=== PATIENT | male | born 1995 | race African-American/Black ===

== ENCOUNTER 2019-11-05 17:33 | Emergency (ER) | payer SELFPAY ==
[~2019-11-05] VITALS: Ht 162.6 cm; Wt 87.0 kg
--- NOTE | 2019-11-05 17:55 | PHYS DOC ---
Adult General Chief Complaint Chief Complaint: SORE THROAT... " I ve been having this sore throat... and congestion the last three days... " HPI HPI Patient is a 24 year old male who presents with above hx and complaints of sore throat, injection and rhinorrhea. No history of travel. No history of specific ill contacts. No history immunosuppression. Did not get flu vaccination this season. No recent travel outside of [facility]. Normally healthy. Review of Systems Review of Systems Constitutional: Denies fever or chills [] Eyes: Denies change in visual acuity, redness, or eye pain [] HENT: Complains of nasal congestion and sore throat [] Respiratory: Denies cough or shortness of breath [] Cardiovascular: No additional information not addressed in HPI [] GI: Denies abdominal pain, nausea, vomiting, bloody stools or diarrhea [] : Denies dysuria or hematuria [] Musculoskeletal: Denies back pain or joint pain [] Integument: Denies rash or skin lesions [] Neurologic: Denies headache, focal weakness or sensory changes [] Endocrine: Denies polyuria or polydipsia [] All other systems were reviewed and found to be within normal limits, except as documented in this note. Family History Family History Noncontributory to presentation Current Medications Current Medications See nursing for home meds Allergies Allergies No known drug allergies Physical Exam Physical Exam Constitutional: Well developed, well nourished, no acute distress, non-toxic appearance. [] HENT: Normocephalic, atraumatic, bilateral external ears normal, oropharynx moist, injected pharynx, no oral exudates, nose swollen turbinates and clear rhinorrhea Eyes: PERRLA, EOMI, conjunctiva normal, no discharge. [] Neck: Normal range of motion, no tenderness, supple, no stridor. [] Cardiovascular:Heart rate regular rhythm, no murmur [] Lungs & Thorax: Bilateral breath sounds equal at apex on auscultation []few scattered wheezes. Abdomen: Bowel sounds normal, soft, no tenderness, no masses, no pulsatile masses. [] Skin: Warm, dry, no erythema, no rash. [] Back: No tenderness, no CVA tenderness. [] Extremities: No tenderness, no cyanosis, no clubbing, ROM intact, no edema. [] Neurologic: Alert and oriented X 3, normal motor function, normal sensory function, no focal deficits noted. [] Psychologic: Affect anxious, judgement normal, mood normal. [] EKG EKG [] Radiology/Procedures Radiology/Procedures [] Course & Med Decision Making Course & Med Decision Making Pertinent Labs and Imaging studies reviewed. (See chart for details) Patient push fluids and take Tylenol and ibuprofen as needed for discomfort. Gargle with Listerine 4 times a day follow-up primary care. Return if any concerns. Benadryl 50 mg up 4 times a day may be helpful for nasal drainage and congestion. Impression: 1. Pharyngitis 2. Viral syndrome [] Dragon Disclaimer Dragon Disclaimer This electronic medical record was generated, in whole or in part, using a voice recognition dictation system. Departure Departure: Disposition: 01 HOME/RESIDENCE PRIOR TO ADM Condition: STABLE Referrals: PCP,NO (PCP) Dragon Disclaimer This chart was dictated in whole or in part using Voice Recognition software in a busy, high-work load, and often noisy Emergency Department environment. It may contain unintended and wholly unrecognized errors or omissions. GYPSY HIGGINS MD Nov 05, 2019 17:55
[2019-11-05] MEDS ORDERED: predniSONE 10 MG TABLET PO ONE (18:00)
[2019-11-05 18:09] VITALS: BP 134/75
[2019-11-05 19:24] LABS: INFLUENZA A PATIENT NEGATIVE (NEGATIVE); INFLUENZA B PATIENT NEGATIVE (NEGATIVE)
== END 2019-11-05 20:00 | disposition home or self-care (01) ==
LOC: ER 17:33
DX: B34.9 Viral infection, unspecified (principal); J02.9 Acute pharyngitis, unspecified
CPT/HCPCS: 87070; 87804; 87880; 99283; J7512

== ENCOUNTER 2020-01-04 16:57 | Emergency (ER) | payer SELFPAY ==
[~2020-01-04] VITALS: Ht 162.6 cm; Wt 89.4 kg
[2020-01-04 17:05] VITALS: BP 135/86
--- NOTE | 2020-01-04 17:13 | PHYS DOC ---
Past History Past Medical History: Seizure Past Surgical History: No Surgical History Alcohol Use: None General Adult EDM: Chief Complaint: LACERATION/AVULSION HPI: HPI: Patient is a 24-year-old male who presents with a small laceration to his right ring and middle fingers. He states he cut it while sharpening a lawnmower blade. He states it bled a lot at home. [] Review of Systems: Review of Systems: Constitutional: Denies fever or chills Eyes: Denies change in visual acuity HENT: Denies nasal congestion or sore throat Respiratory: Denies cough or shortness of breath Cardiovascular: Denies chest pain or edema GI: Denies abdominal pain, nausea, vomiting, bloody stools or diarrhea : Denies dysuria Musculoskeletal: Denies back pain or joint pain Integument: Per HPI Neurologic: Denies headache, focal weakness or sensory changes Endocrine: Denies polyuria or polydipsia Lymphatic: Denies swollen glands Psychiatric: Denies depression or anxiety Heart Score: Risk Factors: Risk Factors: DM, Current or recent (<one month) smoker, HTN, HLP, family history of CAD, obesity. Risk Scores: Score 0 - 3: 2.5% MACE over next 6 weeks - Discharge Home Score 4 - 6: 20.3% MACE over next 6 weeks - Admit for Clinical Observation Score 7 - 10: 72.7% MACE over next 6 weeks - Early Invasive Strategies Allergies: Allergies: Allergies Coded Allergies Type Severity Reaction Last Updated Verified No Known Drug Allergies 11/05/19 No Physical Exam: PE: Constitutional: Well developed, well nourished, no acute distress, non-toxic appearance. [] HENT: Normocephalic, atraumatic, bilateral external ears normal, oropharynx moist, no oral exudates, nose normal. [] Eyes: PERRLA, EOMI, conjunctiva normal, no discharge. [] Skin: A 0.5 cm superficial laceration to the right ring finger and an even smaller laceration to the middle finger on the dorsal surface [] Back: No tenderness, no CVA tenderness. [] Extremities: No tenderness, no cyanosis, no clubbing, ROM intact, no edema. [] Psychologic extremely anxious. [] EKG: EKG: [] Radiology/Procedures: Radiology/Procedures: [] Course & Med Decision Making: Course & Med Decision Making Pertinent Labs and Imaging studies reviewed. (See chart for details) [Procedure: Laceration repair The wound was cleaned with Hibiclens and then using Dermabond the wound edges were reapproximated on the small wound on the dorsal surface of his right ring finger patient tolerated the procedure well] Conrad Disclaimer: Conrad Disclaimer: This electronic medical record was generated, in whole or in part, using a voice recognition dictation system. Departure Departure: Impression: Primary Impression: Laceration of right hand Qualified Codes: S61.411A - Laceration without foreign body of right hand, initial encounter Disposition: 01 HOME/RESIDENCE PRIOR TO ADM Condition: STABLE Referrals: PCP,NO (PCP) Patient Instructions: Laceration Care, Adult Additional Instructions: Return to the emergency department with any new or concerning symptoms JAMES MARTINES DO January 04, 2020 17:12
== END 2020-01-04 17:15 | disposition home or self-care (01) ==
LOC: ER 16:57
DX: S61.214A Laceration without foreign body of right ring finger without damage to nail, initial encounter (principal); S61.212A Laceration without foreign body of right middle finger without damage to nail, initial encounter; W26.8XXA Contact with other sharp object(s), not elsewhere classified, initial encounter; Y93.89 Activity, other specified; Y92.89 Other specified places as the place of occurrence of the external cause; Y99.8 Other external cause status
CPT/HCPCS: 12001; 99282

== ENCOUNTER 2020-05-07 21:07 | Emergency (ER) | payer SELFPAY ==
[~2020-05-07] VITALS: Ht 162.6 cm; Wt 89.4 kg
[2020-05-07 21:19] VITALS: BP 124/84
--- NOTE | 2020-05-07 21:34 | PHYS DOC ---
Past History Past Medical History: Anxiety, Depression, Seizure Past Surgical History: No Surgical History Alcohol Use: None General Adult EDM: Chief Complaint: INSECT BITE HPI: HPI: Juliano Carrington is a 25-year-old male who presents approximately 2 hours after being stung by multiple yellow jackets. He states that while he was cutting grass he disturbed yellow jackets who proceeded to sting him. He was stung 3 times: Back of his head, left anterior thigh, left posterior lower calf. He denies history of allergies including after being stung by a yellow jacket approximately 5 years ago. Patient currently has some mild shortness of breath, but states that he is experiencing anxiety and that the sensation is similar to his past encounters with anxiety. He has not taken anything for the pain today. Review of Systems: Review of Systems: Constitutional: Denies fever or chills Eyes: Denies redness or eye pain HENT: Denies nasal congestion or sore throat Respiratory: Denies cough; admits shortness of breath Cardiovascular: Denies chest pain or palpitations GI: Denies abdominal pain, nausea, or vomiting Musculoskeletal: Denies back pain or joint pain Integument: Denies rash or skin lesions; affirms insect stings Neurologic: Denies headache, focal weakness or sensory changes Psych: Admits anxiety Complete systems were reviewed and found to be within normal limits, except as documented in this note. Heart Score: Risk Factors: Risk Factors: DM, Current or recent (<one month) smoker, HTN, HLP, family history of CAD, obesity. Risk Scores: Score 0 - 3: 2.5% MACE over next 6 weeks - Discharge Home Score 4 - 6: 20.3% MACE over next 6 weeks - Admit for Clinical Observation Score 7 - 10: 72.7% MACE over next 6 weeks - Early Invasive Strategies Allergies: Allergies: Allergies Coded Allergies Type Severity Reaction Last Updated Verified No Known Drug Allergies 11/05/19 No Physical Exam: PE: Constitutional: Well developed, well nourished, no acute distress, non-toxic appearance HENT: Normocephalic, atraumatic Neck: Normal range of motion, no tenderness, supple Lungs & Thorax: No respiratory distress, equal chest rise and fall, clear to all station bilaterally Cardiac: Regular rate rhythm, no murmur Abdomen: Soft, no tenderness Skin: Warm, dry; small areas of erythema on the left distal anterior thigh and distal medial posterior calf, no obvious erythema in the occipital region, no tenderness to palpation of these erythematous regions Back: No tenderness, no CVA tenderness Extremities: No tenderness, ROM intact, no edema Neurologic: Alert and oriented X 3, normal motor function, normal sensory function, no focal deficits noted Psychologic: Affect normal, judgment normal Course & Med Decision Making: Course & Med Decision Making Patient presented after insect stings as described above. Given the patient's clinical presentation as well as his past experience with yellow jackets I do not suspect anaphylaxis. Patient is treated with Benadryl and dexamethasone. Instructed to continue care at home with [id number]. Dragon Disclaimer: Figment Disclaimer: This electronic medical record was generated, in whole or in part, using a voice recognition dictation system. Departure Departure: Impression: Primary Impression: Insect bite Qualified Codes: W57.XXXA - Bitten or stung by nonvenomous insect and other nonvenomous arthropods, initial encounter Disposition: HOME/RESIDENCE PRIOR TO ADM Condition: STABLE Referrals: PCP,NO (PCP) Patient Instructions: Bee, Wasp, or Hornet Sting Scripts Diphenhydramine Hcl (BENADRYL) 25 Mg Capsule 1 CAP PO Q6HRS PRN for RASH, #30 CAP 0 Refills Prov: MATILDA TAYLOR DO 05/07/20 Prednisone (PREDNISONE) 20 Mg Tablet 2 TAB PO DAILY for Wasp stings, #8 TAB Start this prescription tomorrow, Monday05/08/2020 Prov: MATILDA TAYLOR DO 05/07/20 Justification of Admission: Justification of Admission: Justification of Admission Dx: N/A MATILDA TAYLRO DO May 07, 2020 21:34
[2020-05-07] MEDS ORDERED: PRED20TA PO (21:39)
[2020-05-07] MEDS ORDERED: DIPH25CA58 PO (21:39)
[2020-05-07] MEDS ORDERED: diphenhydrAMINE HCL 25 MG CAPSULE PO ONE (21:45)
[2020-05-07] MEDS ORDERED: DEXAMETHASONE 4 MG TABLET PO ONE (21:45)
== END 2020-05-07 21:57 | disposition home or self-care (01) ==
LOC: ER 21:07
DX: T63.461A Toxic effect of venom of wasps, accidental (unintentional), initial encounter (principal); R06.02 Shortness of breath; F41.9 Anxiety disorder, unspecified; F32.9 Major depressive disorder, single episode, unspecified; Y92.89 Other specified places as the place of occurrence of the external cause
CPT/HCPCS: 99283; J8540; Q0163

== ENCOUNTER 2021-10-02 09:45 | Emergency (ER) | payer SELFPAY ==
[~2021-10-02] VITALS: Ht 162.6 cm; Wt 89.4 kg
[2021-10-02 09:45] VITALS: BP 126/81
[~2021-10-02 09:45] MED LIST: DIPH25CA58 PO; PRED20TA PO
--- NOTE | 2021-10-02 10:22 | PHYS DOC ---
Past History Past Medical History: Anxiety, Depression, Seizure (DON CLIFFORD APRN) Past Surgical History: Appendectomy (DON CLIFFORD APRN) Smoking: Non-smoker Alcohol Use: None Drug Use: None (DON CLIFFORD APRN) General Adult EDM: Chief Complaint: Neck Pain HPI: HPI: Patient is a 26-year-old male that presents today with left-sided neck pain. Patient states he woke up last week, patient states pain is underneath the left jaw area, patient denies any trauma or injury to this area, does state that he has a broken tooth on the left lower jaw area but he does not feel that is causing his issues. Patient does state he has a family history of hypertension and he is concerned he may have hypertension patient also states that he has a history of rapid heartbeat and he feels this is may be causing his issues as well. Patient denies chest pain, shortness of air, fever, difficulty swallo wing, dizziness, blurred vision/double vision, facial droop or numbness or tingling on one side of his body. (DON CLIFFORD APRN) Review of Systems: Review of Systems: Constitutional: Denies fever or chills Eyes: Denies change in visual acuity HENT: Left-sided neck pain Respiratory: Denies cough or shortness of breath Cardiovascular: Denies chest pain or edema GI: Denies abdominal pain, nausea, vomiting, bloody stools or diarrhea : Denies dysuria Musculoskeletal: Denies back pain or joint pain Integument: Denies rash Neurologic: Denies headache, focal weakness or sensory changes Endocrine: Denies polyuria or polydipsia Lymphatic: Denies swollen glands Psychiatric: Denies depression or anxiety (DON CLIFFORD APRN) Allergies: Allergies: Allergies Coded Allergies Type Severity Reaction Last Updated Verified No Known Drug Allergies 11/05/19 No (DON CLIFFORD APRN) Physical Exam: PE: Constitutional: Well developed, well nourished, no acute distress, non-toxic appearance. [] HENT: Normocephalic, atraumatic, bilateral external ears normal, oropharynx moist, no oral exudates, nose normal, patient does have a left back molar that is cracked and skilled nursing broken off, no swelling or drainage noted. Eyes: PERRLA, EOMI, conjunctiva normal, no discharge. [] Neck: Normal range of motion, no tenderness, supple, no stridor. [] Cardiovascular:Heart rate regular rhythm, no murmur [] Lungs & Thorax: Bilateral breath sounds clear to auscultation [] Abdomen: Bowel sounds normal, soft, no tenderness, no masses, no pulsatile m asses. [] Skin: Warm, dry, no erythema, no rash. [] Back: No tenderness, no CVA tenderness. [] Extremities: No tenderness, no cyanosis, no clubbing, ROM intact, no edema. [] Neurologic: Alert and oriented X 3, normal motor function, normal sensory function, no focal deficits noted. [] Psychologic: Affect normal, judgement normal, mood normal. [] (DON CLIFFORD APRN) Current Patient Data: Vital Signs: Vital Signs Date Time Temp Pulse Resp B/P (MAP) Pulse Ox O2 Delivery O2 Flow Rate FiO2 10/02/21 09:45 97.9 70 14 126/81 (96) 98 Room Air (DON CLIFFORD APRN) EKG: EKG: [] (DON CLIFFORD APRN) Radiology/Procedures: Radiology/Procedures: [] (DON CLIFFORD APRN) Heart Score: C/O Chest Pain: N/A Risk Factors: Risk Factors: DM, Current or recent (<one month) smoker, HTN, HLP, family history of CAD, obesity. Risk Scores: Score 0 - 3: 2.5% MACE over next 6 weeks - Discharge Home Score 4 - 6: 20.3% MACE over next 6 weeks - Admit for Clinical Observation Score 7 - 10: 72.7% MACE over next 6 weeks - Early Invasive Strategies (DON CLIFFORD APRN) Course & Med Decision Making: Course & Med Decision Making Pertinent Labs and Imaging studies reviewed. (See chart for details) Patient was assessed no acute distress noted patient is able to swallow, no trauma to his neck noted. Patient will be sent home with a list of resources for a dentist to follow-up with on the cracked tooth and the clinic to follow-up with his his concerns regarding his high blood pressure and his family history of hypertension. Patient verbalizes understanding of all this and is agreeable to the plan of care. (DON CLIFFORD APRN) Course & Med Decision Making I was the Attending physician on the above date of service of this patient. This patient was evaluated, examined, treated, and dispositioned from the emergency department by the mid-level practitioner. Although I was working at the time , no assistance was requested. Electronically signed, Cori Castellano DO (CORI CASTELLANO DO) Conrad Disclaimer: Dragxenia Disclaimer: This electronic medical record was generated, in whole or in part, using a voice recognition dictation system. (DON CLIFFORD APRN) Departure Departure: Impression: Primary Impression: Neck pain on left side Disposition: HOME / SELF CARE / HOMELESS Condition: STABLE Referrals: PCP,LORRIE (PCP) Patient Instructions: Myofascial Pain Syndrome Additional Instructions: Tylenol and/or ibuprofen as needed for fever and pain Follow-up with the dentist and community clinic listed in the resource list for further management of your left jaw pain. DON CLIFFORD APRN Oct 02, 2021 10:22 CORI CASTELLANO DO Oct 07, 2021 06:41
== END 2021-10-02 10:25 | disposition home or self-care (01) ==
LOC: ER 09:45
DX: M54.2 Cervicalgia (principal)
CPT/HCPCS: 99282

== ENCOUNTER 2022-01-10 23:39 | Emergency (ER) | payer SELFPAY ==
[~2022-01-10] VITALS: Ht 162.6 cm; Wt 89.4 kg
[2022-01-10 23:50] VITALS: BP 125/44
--- NOTE | 2022-01-10 23:51 | PHYS DOC ---
Past History Past Medical History: Anxiety, Depression, Seizure Past Surgical History: Appendectomy Smoking: Non-smoker Alcohol Use: None Drug Use: None General Adult EDM: Chief Complaint: FACE PROBLEM HPI: HPI: " ,, I ve got really bad dental pain.. here on the Lt. ....now pain is all over my face... I got an apt. at [facility] 01/18.. but I ve got to have something to night... Patient is a 26 year old male who presents with above hx and complaints of Lt. facial pain and severe pain in teeth 16 and 17. Pt. reportedly has a follow up at [facility] on 01/18. Pt seen previously for same problem on patient denies any history immunosuppression. No recent travel. No trismus. Has not gotten flu vaccinations has not been COVID vaccination. Does have some left facial swelling and adenopathy at angle of mandible left. Review of Systems: Review of Systems: Constitutional: Denies fever or chills Eyes: Denies change in visual acuity HENT: Complains of dental and facial pain Respiratory: Denies cough or shortness of breath Cardiovascular: Denies chest pain or edema GI: Denies abdominal pain, nausea, vomiting, bloody stools or diarrhea : Denies dysuria Musculoskeletal: Denies back pain or joint pain Integument: Denies rash Neurologic: Denies headache, focal weakness or sensory changes Endocrine: Denies polyuria or polydipsia Lymphatic: Denies swollen glands Psychiatric: Denies depression or anxiety Family History: Family History: Noncontributory to presentation Current Medications: Current Meds: See nursing for home meds Allergies: Allergies: Allergies Coded Allergies Type Severity Reaction Last Updated Verified No Known Drug Allergies 11/05/19 No Physical Exam: PE: Constitutional: In acute distress, non-toxic appearance. [] HENT: Normocephalic, atraumatic, bilateral external ears normal, oropharynx moist, no oral exudates, nose normal. Dental caries. Pain tonight appears to be localized in teeth 16 and 17. Mild at the angle of mandible left Eyes: PERRLA, EOMI, conjunctiva normal, no discharge. [] Neck: Normal range of motion, no tenderness, supple, no stridor. [] Cardiovascular:Heart rate regular rhythm, no murmur [] Lungs & Thorax: Bilateral breath sounds equal apex with scattered wheezes auscultation [] Abdomen: Bowel sounds normal, soft, no tenderness, no masses, no pulsatile m asses. [] Skin: Warm, dry, no erythema, no rash. [] Back: No tenderness, no CVA tenderness. [] Extremities: No tenderness, no cyanosis, no clubbing, ROM intact, no edema. [] Neurologic: Alert and oriented X 3, normal motor function, normal sensory function, no focal deficits noted. [] Psychologic: Affect anxious,, judgement normal, mood normal. [] EKG: EKG: [] Radiology/Procedures: Radiology/Procedures: [] Heart Score: C/O Chest Pain: N/A Risk Factors: Risk Factors: DM, Current or recent (<one month) smoker, HTN, HLP, family hist ory of CAD, obesity. Risk Scores: Score 0 - 3: 2.5% MACE over next 6 weeks - Discharge Home Score 4 - 6: 20.3% MACE over next 6 weeks - Admit for Clinical Observation Score 7 - 10: 72.7% MACE over next 6 weeks - Early Invasive Strategies Course & Med Decision Making: Course & Med Decision Making Pertinent Labs and Imaging studies reviewed. (See chart for details) Patient take Tylenol and ibuprofen for pain. Patient take Keflex 500 mg 3 times a day. Patient keep follow-up with dentist on 01/18. Return if any concerns. Impression: 1. Dental infection 2. Dental caries [] Dragon Disclaimer: Dragon Disclaimer: This electronic medical record was generated, in whole or in part, using a voice recognition dictation system. Departure Departure: Referrals: PCP,NO (PCP) Scripts Cephalexin (KEFLEX) 500 Mg Capsule 500 MG PO TID for dental infection for 10 Days, #30 CAP Prov: GYPSY HIGGINS MD 01/11/22 Dragon Disclaimer This chart was dictated in whole or in part using Voice Recognition software in a busy, high-work load, and often noisy Emergency Department environment. It may contain unintended and wholly unrecognized errors or omissions. Dragon Disclaimer This chart was dictated in whole or in part using Voice Recognition software in a busy, high-work load, and often noisy Emergency Department environment. It may contain unintended and wholly unrecognized errors or omissions. GYPSY HIGGINS MD January 10, 2022 23:51
[2022-01-11] MEDS ORDERED: CEPH500C PO (00:19)
[2022-01-11] MEDS ORDERED: cefTRIAXone IM 1 GM VIAL IM ONE (00:30)
[2022-01-11] MEDS ORDERED: KETOROLAC 60 MG/2 ML VIAL. IM ONE (00:30)
== END 2022-01-11 01:15 | disposition home or self-care (01) ==
LOC: ER 23:39
DX: K02.9 Dental caries, unspecified (principal); K04.7 Periapical abscess without sinus
CPT/HCPCS: 96372; 99284; J0696; J1885